=== PATIENT | female | born 1940 | race Caucasian/White ===

== ENCOUNTER 2016-08-14 08:44 | Emergency (ER) | payer MEDICARE ==
[~2016-08-14 08:44] MED LIST: ALDACTONE25 MG PO; ASPIRIN EC81 MG PO; DIOVAN320 MG PO; LASIX40 MG PO; LEVOTHYROXINE175 MCG PO; PRILOSEC20 MG PO; TEGRETOL200 MG PO
[2016-08-14 09:13] LABS: BILIRUBIN NEGATIVE (NEGATIVE); BLOOD TRACE-INTACT Ery/uL (NEGATIVE); CLARITY CLEAR (CLEAR); COLOR YELLOW (YELLOW); GLUCOSE (U) NORMAL (NORMAL); KETONE (U) NEGATIVE (NEGATIVE); LEUKOCYTES NEGATIVE Leu/uL (NEGATIVE); NITRITE NEGATIVE (NEGATIVE); PROTEIN NEGATIVE (NEGATIVE); UROBILINOGEN 0.2 mg/dL (0.2-1.0); pH 5.5 (5.0-9.0)
[2016-08-14 09:21] LABS: URINARY RBC RARE
[2016-08-14 09:47] LABS: BASOPHIL 0.1 % (0-2); HCT 34.1 % (37.0-47.0); HGB 11.6 g/dl (12.5-16.0); LYMPHOCYTE 15.3 % (15-48); MCH 29.7 pg (25.0-31.0); MCV 87.2 fL (78.0-100.0); MONOCYTE 8.5 % (0-12); MPV 9.2 fL (6.0-9.5); NEUTROPHIL 75.1 % (41-80); PLT 241 K/uL (150-400); RBC 3.91 M/uL (4.20-5.40); RDW 13.1 % (11.5-14.0); WBC 6.8 K/uL (4.0-10.5)
[2016-08-14 09:56] LABS: INR 1.04 (0.9-1.2); PROTHROMBIN TIME 13.2 SECONDS (11.7-14.0); PTT 26.5 SECONDS (23.2-31.4)
[2016-08-14 10:06] LABS: ALBUMIN 4.1 g/dL (3.4-4.8); BILIRUBIN - TOTAL 0.2 mg/dL (0.1-1.0); CKMB 3.18 ng/mL (0.97-4.94); CREATININE 1.5 mg/dL (0.5-1.0); GLOBULIN (CALCULATION) 2.9 g/dL (2.2-4.2); MYOGLOBIN 92 ng/mL (26-65); POTASSIUM 4.8 mmol/L (3.5-5.1); TROPONIN T < 0.010 ng/mL
== END 2016-08-14 12:20 | disposition other institution (70) ==
LOC: FER 08:44
PROVIDERS: Emergency Medicine
DX: G45.9 Transient cerebral ischemic attack, unspecified (principal); R29.700 NIHSS score 0; I34.1 Nonrheumatic mitral (valve) prolapse
CPT/HCPCS: 36415; 70450; 71010; 80053; 80061; 81001; 82550; 82553; 83874; 84484; 85025; 85610; 85730

== ENCOUNTER 2016-09-02 22:52 | Emergency (ER) | payer MEDICARE | END 2016-09-02 23:50 | disposition home or self-care (01) | LOC: FER 22:52 | DX: I12.9 Hypertensive chronic kidney disease with stage 1 through stage 4 chronic kidney disease, or unspecified chronic kidney disease (principal); N18.9 Chronic kidney disease, unspecified; I34.1 Nonrheumatic mitral (valve) prolapse; E03.9 Hypothyroidism, unspecified; F31.89 Other bipolar disorder; Z86.73 Personal history of transient ischemic attack (TIA), and cerebral infarction without residual deficits | CPT/HCPCS: 99283 ==

== ENCOUNTER 2016-10-21 01:42 | Emergency (ER) | payer MEDICARE ==
[2016-10-21 02:57] LABS: BASOPHIL 0.5 % (0-2); EOSINOPHIL 4.6 % (0-7); HCT 30.1 % (37.0-47.0); HGB 10.4 g/dl (12.5-16.0); LYMPHOCYTE 26.3 % (15-48); MCH 29.7 pg (25.0-31.0); MCHC 34.6 g/dL (32.0-36.0); MONOCYTE 10.2 % (0-12); NEUTROPHIL 58.4 % (41-80); PLT 262 K/uL (150-400); RDW 13.2 % (11.5-14.0); WBC 5.7 K/uL (4.0-10.5)
[2016-10-21 03:03] LABS: TOTAL CELL COUNT 100
[2016-10-21 03:06] LABS: PTT 29.1 SECONDS (23.2-31.4)
[2016-10-21 03:07] LABS: BAND 2 % (0-10); D-DIMER 0.77 ug/mLFEU (0.00-0.41); EOSINOPHIL(M) 6 % (0-7); INR 1.13 (0.9-1.2); LYMPHOCYTE(M) 24 % (15-48); MONOCYTE(M) 8 % (0-12); NEUTROPHILS(M) 60 % (41-80); PLATELET ESTIMATE NORMAL; PLATELET MORPHOLOGY NORMAL; PROTHROMBIN TIME 14.1 SECONDS (11.7-14.0)
[2016-10-21 03:14] LABS: TROPONIN T 0.02 ng/mL
[2016-10-21 03:16] LABS: ALBUMIN 3.8 g/dL (3.4-4.8); BILIRUBIN - TOTAL 0.3 mg/dL (0.1-1.0); CREATININE 1.9 mg/dL (0.5-1.0); GLOBULIN (CALCULATION) 2.8 g/dL (2.2-4.2); POTASSIUM 3.8 mmol/L (3.5-5.1); TOTAL PROTEIN 6.6 g/dL (6.4-8.3)
[2016-10-21 03:34] LABS: BILIRUBIN NEGATIVE (NEGATIVE); BLOOD NEGATIVE Ery/uL (NEGATIVE); CLARITY CLEAR (CLEAR); COLOR YELLOW (YELLOW); GLUCOSE (U) NORMAL (NORMAL); KETONE (U) NEGATIVE (NEGATIVE); LEUKOCYTES NEGATIVE Leu/uL (NEGATIVE); NITRITE NEGATIVE (NEGATIVE); PROTEIN NEGATIVE (NEGATIVE); SPECIFIC GRAVITY <=1.005 (1.001-1.030); UROBILINOGEN 0.2 mg/dL (0.2-1.0); pH 5.5 (5.0-9.0)
[2016-10-21 03:36] LABS: AMPHETAMINES NEGATIVE (NEGATIVE); BARBITURATES NEGATIVE (NEGATIVE); BENZODIAZEPINES NEGATIVE (NEGATIVE); COCAINE NEGATIVE (NEGATIVE); MARIJUANA (THC) NEGATIVE (NEGATIVE); METHADONE NEGATIVE (NEGATIVE); TRICYCLIC ANTIDEPRESSANT NEGATIVE (NEGATIVE)
== END 2016-10-21 04:30 | disposition home or self-care (01) ==
LOC: FER 01:42
PROVIDERS: Emergency Medicine
DX: R06.02 Shortness of breath (principal); I12.9 Hypertensive chronic kidney disease with stage 1 through stage 4 chronic kidney disease, or unspecified chronic kidney disease; N18.9 Chronic kidney disease, unspecified; E87.1 Hypo-osmolality and hyponatremia; E78.5 Hyperlipidemia, unspecified; I34.1 Nonrheumatic mitral (valve) prolapse; F31.9 Bipolar disorder, unspecified; Z79.899 Other long term (current) drug therapy; Z86.73 Personal history of transient ischemic attack (TIA), and cerebral infarction without residual deficits; Z88.6 Allergy status to analgesic agent; Z88.8 Allergy status to other drugs, medicaments and biological substances
CPT/HCPCS: 36415; 36600; 70450; 71010; 80053; 80305; 81003; 82803; 83880; 84484; 85379; 85610; 85730; 93005

== ENCOUNTER 2016-10-27 12:08 | Emergency (ER) | payer MEDICARE | END 2016-10-27 14:48 | disposition home or self-care (01) | LOC: FER 12:08 | DX: S00.01XA Abrasion of scalp, initial encounter (principal); E78.5 Hyperlipidemia, unspecified; F31.9 Bipolar disorder, unspecified; Z86.73 Personal history of transient ischemic attack (TIA), and cerebral infarction without residual deficits; Z88.8 Allergy status to other drugs, medicaments and biological substances; Z79.899 Other long term (current) drug therapy; W10.9XXA Fall (on) (from) unspecified stairs and steps, initial encounter; Y92.009 Unspecified place in unspecified non-institutional (private) residence as the place of occurrence of the external cause | CPT/HCPCS: 36415; 70450; 72125; 80048; 85025 ==

== ENCOUNTER 2016-11-02 00:38 | Emergency (ER) | payer MEDICARE | END 2016-11-02 02:34 | disposition home or self-care (01) | LOC: FER 00:38 | DX: S00.03XA Contusion of scalp, initial encounter (principal); F31.9 Bipolar disorder, unspecified; Z86.73 Personal history of transient ischemic attack (TIA), and cerebral infarction without residual deficits; Z88.6 Allergy status to analgesic agent; Z88.8 Allergy status to other drugs, medicaments and biological substances; Z79.02 Long term (current) use of antithrombotics/antiplatelets; Z79.899 Other long term (current) drug therapy; W22.8XXA Striking against or struck by other objects, initial encounter; Y92.009 Unspecified place in unspecified non-institutional (private) residence as the place of occurrence of the external cause | CPT/HCPCS: 70450 ==

== ENCOUNTER 2016-11-13 21:49 | Emergency (ER) | payer MEDICARE ==
[2016-11-13 22:55] LABS: BASOPHIL 0.3 % (0-2); EOSINOPHIL 2.8 % (0-7); HGB 11.2 g/dl (12.5-16.0); LYMPHOCYTE 22.9 % (15-48); MCH 29.8 pg (25.0-31.0); MCHC 32.9 g/dL (32.0-36.0); MCV 90.4 fL (78.0-100.0); MONOCYTE 10.4 % (0-12); MPV 9.9 fL (6.0-9.5); NEUTROPHIL 63.6 % (41-80); PLT 318 K/uL (150-400); RBC 3.76 M/uL (4.20-5.40); RDW 13.4 % (11.5-14.0); WBC 7.2 K/uL (4.0-10.5)
[2016-11-13 23:04] LABS: INR 1.1 (0.9-1.2); PROTHROMBIN TIME 13.8 SECONDS (11.7-14.0); PTT 26.5 SECONDS (23.2-31.4)
[2016-11-13 23:09] LABS: LACTIC ACID 0.7 mmol/L (0.5-2.2)
[2016-11-13 23:10] LABS: BILIRUBIN - TOTAL 0.2 mg/dL (0.1-1.0); CREATININE 1.5 mg/dL (0.5-1.0); GLOBULIN (CALCULATION) 2.1 g/dL (2.2-4.2); POTASSIUM 4.9 mmol/L (3.5-5.1); TOTAL PROTEIN 6.1 g/dL (6.4-8.3)
[2016-11-13 23:11] LABS: CKMB 4.94 ng/mL (0.97-4.94); TROPONIN T < 0.010 ng/mL
[2016-11-13 23:57] LABS: BILIRUBIN NEGATIVE (NEGATIVE); BLOOD NEGATIVE Ery/uL (NEGATIVE); CLARITY CLEAR (CLEAR); COLOR YELLOW (YELLOW); GLUCOSE (U) NORMAL (NORMAL); KETONE (U) NEGATIVE (NEGATIVE); LEUKOCYTES NEGATIVE Leu/uL (NEGATIVE); NITRITE NEGATIVE (NEGATIVE); PROTEIN NEGATIVE (NEGATIVE); UROBILINOGEN 0.2 mg/dL (0.2-1.0)
[2016-11-14 00:07] LABS: FT4 (FREE T4) 1.57 ng/dL (0.93-1.70); TSH (THYROID STIM HORMONE) 4.12 uIU/mL (0.270-4.200)
== END 2016-11-14 01:55 | disposition home or self-care (01) ==
LOC: FER 21:49
PROVIDERS: Emergency Medicine Emergency Medical Services
DX: R53.1 Weakness (principal); F41.8 Other specified anxiety disorders; F31.9 Bipolar disorder, unspecified; E86.9 Volume depletion, unspecified; R82.90 Unspecified abnormal findings in urine; I11.9 Hypertensive heart disease without heart failure; E03.9 Hypothyroidism, unspecified; Z88.8 Allergy status to other drugs, medicaments and biological substances
CPT/HCPCS: 36415; 70450; 71010; 74000; 80053; 81003; 82550; 82553; 83605; 84439; 84443; 84484; 85025; 85610; 85730; 87040; 87088; 93005